=== PATIENT | male | born 1985 | race Caucasian/White ===

== ENCOUNTER 2019-07-06 19:31 | Inpatient (IN) | payer BC ==
[~2019-07-06] VITALS: Ht 172.7 cm; Wt 93.6 kg
[2019-07-09 07:28] VITALS: BP 129/86
== END 2019-07-09 12:35 | disposition home or self-care (01) | DRG 439 ==
LOC: ED 19:55 → 3NE 20:00 → ED 20:27 → DCLOUNGE 07-09 12:20
PROVIDERS: ADMIT Internal Medicine; ATTEND Internal Medicine
DX: K85.90 Acute pancreatitis without necrosis or infection, unspecified (principal); L03.311 Cellulitis of abdominal wall; E78.1 Pure hyperglyceridemia; E78.5 Hyperlipidemia, unspecified; F41.9 Anxiety disorder, unspecified; G89.29 Other chronic pain; I10 Essential (primary) hypertension; M51.26 Other intervertebral disc displacement, lumbar region
CPT/HCPCS: 36415; 80048; 80053; 80061; 80076; 83690; 83735; 84100; 85025; 85610; 93005; 96374; G0378; J1170; J1885; J2405; J3475; J2060; J2270; J7030

== ENCOUNTER 2019-10-13 16:24 | Inpatient (IN) | payer BC ==
[~2019-10-13] VITALS: Ht 172.7 cm; Wt 88.4 kg
[~2019-10-13 16:24] MED LIST: ALPR1TAB2 PO; EVEKO PO; GEMF600T8 PO; HYDR-3245 PO; KETO10TA PO; ONDA4TAB13 SL; VALS80TA3 PO
--- NOTE | 2019-10-13 18:09 | NUR ---
REGISTRATION MANAGER - PT TO ROOM FROM LOBBY AT THIS TIME.
--- NOTE | 2019-10-13 18:36 | NUR ---
PT AMBULATORY TO ED FROM HOME. C/O PANCREATITIS SX STARTED LAST NIGHT. WAS AT FAMILY GATHERING ON WEEKEND, ATE FATTY FOODS AND DRANK 3 BEERS. JAN 2018 HAD PANCREATITIS FOR FIRST TIME. STS USED TO DRINK HEAVILY, STOPPED JAN 2018. C/O NAUSEA, TOOK ZOFRAN, NO VOMITING. LAST BM TODAY, STS LOOSE. LUNGS CTAB, BS PRESENT, C/O 10/10 UPPER ABDOMINAL PAIN RADIATES TO BACK. STS HAS BEEN IN HOSPITAL 6 TIMES FOR PANCREATITIS. VSS. CALL [facility] IN REACH, FALL PRECS IN PLACE.
[2019-10-13] MEDS ORDERED: SODIUM CHLORIDE 0.9% 1,000ML IVBOLUS ONE (19:00)
[2019-10-13] MEDS ORDERED: ONDANSETRON 2MG/ML, 2ML IVPush ONE (19:00)
[2019-10-13] MEDS ORDERED: SODIUM CHLORIDE FLUSH 10ML SYR IVF ONE (19:00)
[2019-10-13 19:06] LABS: BASOPHILS # (AUTO) 0.02 x10^3/uL (0-0.1); BASOPHILS % (AUTO) 0 % (0-1); EOSINOPHILS # (AUTO) 0.01 x10^3/uL (0-0.4); EOSINOPHILS % (AUTO) 0 % (1-7); LYMPHOCYTES # (AUTO) 0.79 x10^3/uL (1-3.4); LYMPHOCYTES % (AUTO) 7 % (22-44); MD NO; MEAN CORPUSCULAR HEMOGLOBIN 30.3 pg (27.5-34.5); MEAN CORPUSCULAR HGB CONC 34.1 g/dL (33.2-36.2); MEAN CORPUSCULAR VOLUME 88.8 fL (81-97); MEAN PLATELET VOLUME 7.3 fL (7.4-10.4); MONOCYTES # (AUTO) 0.45 x10^3/uL (0.2-0.8); MONOCYTES % (AUTO) 4 % (2-9); NEUTROPHILS # (AUTO) 9.37 x10^3/uL (1.8-6.8); NEUTROPHILS % (AUTO) 88 % (42-75); PLATELET COUNT 251 x10^3/uL (130-400); RED BLOOD COUNT 4.77 x10^6/uL (4.38-5.82); RED CELL DISTRIBUTION WIDTH 13.1 % (9.4-14.8)
[2019-10-13] MEDS ORDERED: ONDANSETRON 2MG/ML, 2ML ONE (19:16)
[2019-10-13] MEDS ORDERED: HYDROmorphone 2 MG/ML, 1ML ONE (19:16)
[2019-10-13 19:17] LABS: ALANINE AMINOTRANSFERASE 68 U/L (12-78); ALBUMIN 3.9 g/dL (3.4-5.0); ANION GAP 4 mmol/L (5-15); CHLORIDE 103 mmol/L (98-107)
[2019-10-13 19:19] LABS: ALKALINE PHOSPHATASE 63 U/L (45-117); BILIRUBIN,TOTAL 0.8 mg/dL (0.2-1.0); CREATININE 0.92 mg/dL (0.7-1.3); TOTAL PROTEIN 7.6 g/dL (6.4-8.2)
[2019-10-13] MEDS: HYDROmorphone 2 MG/ML, 1ML IVPush PRN ×2 (19:20→21:58)
[2019-10-13] MEDS: SODIUM CHLORIDE 0.9% 1,000 ML IV ONE ×2 (19:21→21:58)
--- NOTE | 2019-10-13 19:45 | NUR ---
piv inserted ivf infusing meds per mar vss awaiting results.
[2019-10-13 19:59] LABS: MICROSCOPIC NOT IND
[2019-10-13 20:06] LABS: CULTURE INDICATED? NO
--- NOTE | 2019-10-13 20:50 | NUR ---
pt resting in bed, drowsing. aware of plan for ct. vss.
[2019-10-13] MEDS ORDERED: OMNIPAQUE 350 MG/ML, 100ML BOTTLE ONE (21:33)
--- NOTE | 2019-10-13 21:53 | NUR ---
pt waiting for ct results resting in bed calmly c/o pain plan to medicate w/ second dose. deneis n/v.
[2019-10-13] MEDS ORDERED: HYDROmorphone 1 MG/ML, 1ML VIAL ONE (21:56)
--- NOTE | 2019-10-13 22:06 | NUR ---
report from latrell assumed care of pt at this time
--- NOTE | 2019-10-13 22:08 | NUR ---
report to hossein good.
[2019-10-13] MEDS ORDERED: SODIUM CHLORIDE FLUSH 10ML SYR IVF PRN (22:30)
--- NOTE | 2019-10-13 22:38 | NUR ---
report to ward pt to room with tech
[2019-10-13 23:00] VITALS: BP 128/85
[2019-10-13] MEDS ORDERED: BISACODYL 10 MG SUPP PR PRN (23:00)
[2019-10-13] MEDS: LACTATED RINGERS 1,000 ML IV SCH (23:51)
[2019-10-13] MEDS: ALPRazolam 1MG TAB PO PRN (23:51)
[2019-10-14] MEDS: HYDROmorphone 2 MG/ML, 1ML IVPush PRN ×7 (01:10→20:56)
[2019-10-14 01:38] VITALS: BP 129/82
[2019-10-14] MEDS: ONDANSETRON 2MG/ML, 2ML IVPush PRN ×2 (02:09→14:39)
[2019-10-14] MEDS: LACTATED RINGERS 1,000 ML IV SCH ×2 (03:44→08:26)
[2019-10-14 05:32] LABS: BASOPHILS # (AUTO) 0.03 x10^3/uL (0-0.1); BASOPHILS % (AUTO) 0 % (0-1); EOSINOPHILS # (AUTO) 0.16 x10^3/uL (0-0.4); EOSINOPHILS % (AUTO) 2 % (1-7); LYMPHOCYTES # (AUTO) 2.06 x10^3/uL (1-3.4); LYMPHOCYTES % (AUTO) 23 % (22-44); MD NO; MEAN CORPUSCULAR HEMOGLOBIN 30.8 pg (27.5-34.5); MEAN CORPUSCULAR HGB CONC 34.3 g/dL (33.2-36.2); MEAN CORPUSCULAR VOLUME 89.9 fL (81-97); MEAN PLATELET VOLUME 7.8 fL (7.4-10.4); MONOCYTES # (AUTO) 0.65 x10^3/uL (0.2-0.8); MONOCYTES % (AUTO) 7 % (2-9); NEUTROPHILS # (AUTO) 6.12 x10^3/uL (1.8-6.8); NEUTROPHILS % (AUTO) 68 % (42-75); PLATELET COUNT 223 x10^3/uL (130-400); RED BLOOD COUNT 4.25 x10^6/uL (4.38-5.82); RED CELL DISTRIBUTION WIDTH 13.3 % (9.4-14.8)
[2019-10-14 05:43] LABS: CHLORIDE 106 mmol/L (98-107)
[2019-10-14 05:55] LABS: ALANINE AMINOTRANSFERASE 54 U/L (12-78); ALBUMIN 3.5 g/dL (3.4-5.0); ALKALINE PHOSPHATASE 51 U/L (45-117); ANION GAP 5 mmol/L (5-15); BILIRUBIN,TOTAL 0.9 mg/dL (0.2-1.0); CALCIUM 8.5 mg/dL (8.5-10.1); CHOL/HDL RATIO 4.1; CHOLESTEROL, TOTAL 228 mg/dL (140-239); CREATININE 0.94 mg/dL (0.7-1.3); HDL CHOL % 24 % (26-37); HDL CHOLESTEROL (DIRECT) 55 mg/dL (40-60); LDL CHOLESTEROL,CALCULATED 124 mg/dL (54-169); LDL/HDL RATIO 2.3 (0.5-3.0); TOTAL PROTEIN 6.5 g/dL (6.4-8.2); TRIGLYCERIDES 247 mg/dL (50-200); VLDL CHOLESTEROL 49 mg/dL (0-25)
[2019-10-14 07:38] VITALS: BP 122/80
[2019-10-14] MEDS: [UNRECOGNIZED DRUG - OTHER] HOMEMEDPO SCH (08:26)
[2019-10-14] MEDS ORDERED: GEMFIBROZIL 600 MG TABLET PO SCH (09:00)
[2019-10-14] MEDS ORDERED: VALSARTAN 80 MG TABLET PO SCH (09:00)
[2019-10-14] MEDS: KETOROLAC 30 MG/1 ML IVPush SCH ×3 (09:03→21:59)
[2019-10-14] MEDS: D5%-0.45% NACL 1,000 ML IV SCH ×2 (09:06→17:44)
[2019-10-14 13:01] VITALS: BP 113/71
[2019-10-14 18:42] VITALS: BP 123/76
[2019-10-14] MEDS: VALSARTAN 80 MG TABLET PO SCH (21:59)
[2019-10-14] MEDS: ALPRazolam 1MG TAB PO PRN (23:08)
[2019-10-15] MEDS: HYDROmorphone 2 MG/ML, 1ML IVPush PRN ×5 (01:14→20:26)
[2019-10-15] MEDS: D5%-0.45% NACL 1,000 ML IV SCH ×3 (01:21→19:28)
[2019-10-15 02:08] VITALS: BP 113/76
[2019-10-15] MEDS: KETOROLAC 30 MG/1 ML IVPush SCH ×3 (04:59→19:27)
[2019-10-15 05:26] LABS: ALANINE AMINOTRANSFERASE 46 U/L (12-78); ALBUMIN 3.3 g/dL (3.4-5.0); ANION GAP 6 mmol/L (5-15); CALCIUM 8.4 mg/dL (8.5-10.1); CHLORIDE 108 mmol/L (98-107); CREATININE 0.89 mg/dL (0.7-1.3)
[2019-10-15 05:28] LABS: ALKALINE PHOSPHATASE 50 U/L (45-117); BILIRUBIN,TOTAL 0.6 mg/dL (0.2-1.0); TOTAL PROTEIN 6.6 g/dL (6.4-8.2)
[2019-10-15 07:10] VITALS: BP 129/72
[2019-10-15] MEDS: GEMFIBROZIL 600 MG TABLET PO SCH ×2 (08:17→19:27)
[2019-10-15] MEDS: [UNRECOGNIZED DRUG - OTHER] HOMEMEDPO SCH (08:19)
[2019-10-15 13:21] VITALS: BP 124/75
[2019-10-15 18:48] VITALS: BP 113/69
[2019-10-15] MEDS: VALSARTAN 80 MG TABLET PO SCH (19:27)
[2019-10-16] MEDS: HYDROmorphone 2 MG/ML, 1ML IVPush PRN ×3 (00:30→09:44)
[2019-10-16 00:38] VITALS: BP 118/73
[2019-10-16] MEDS: D5%-0.45% NACL 1,000 ML IV SCH ×2 (03:16→12:00)
[2019-10-16] MEDS: KETOROLAC 30 MG/1 ML IVPush SCH ×2 (03:16→08:34)
[2019-10-16 07:21] VITALS: BP 116/70
[2019-10-16] MEDS: [UNRECOGNIZED DRUG - OTHER] HOMEMEDPO SCH (08:34)
[2019-10-16] MEDS: GEMFIBROZIL 600 MG TABLET PO SCH (08:34)
== END 2019-10-16 12:55 | disposition home or self-care (01) | DRG 440 ==
LOC: ED 20:45 → EDIP 22:14 → 3N 22:56 → DCLOUNGE 10-16 12:49
PROVIDERS: ADMIT Family Medicine; ATTEND Internal Medicine
DX: K85.90 Acute pancreatitis without necrosis or infection, unspecified (principal); I10 Essential (primary) hypertension; E78.5 Hyperlipidemia, unspecified; E78.1 Pure hyperglyceridemia; G89.29 Other chronic pain; F41.9 Anxiety disorder, unspecified; K86.1 Other chronic pancreatitis; Z72.89 Other problems related to lifestyle; Z79.899 Other long term (current) drug therapy
CPT/HCPCS: 36415; 74022; 74177; 80053; 80061; 80307; 81003; 82962; 83690; 83735; 84100; 85025; 93005; 96374; 99285; G0378; J1170; J1885; J2405; Q9967; J7030; J7120